=== PATIENT | female | born 1985 | race Caucasian/White ===

== ENCOUNTER 2019-02-12 17:24 | Emergency (ER) | payer OTHER ==
[~2019-02-12] VITALS: Ht 160 cm; Wt 54.4 kg
[~2019-02-12 17:24] MED LIST: AMOXICILLIN 50500 MG PO; IBUPROFEN 600600 M1 PO; NAPROSYN500 MG PO; NOHOMEMEDICATIONS; NORCO 5-325 TA1 EACH PO; PENICILLIN VK500 MG PO
[2019-02-12] MEDS ORDERED: ONDANSETRON HCL4 M2 PO (19:56)
[2019-02-12 20:07] VITALS: BP 123/82
== END 2019-02-12 20:07 | disposition home or self-care (01) ==
LOC: ER 17:24
DX: G43.909 Migraine, unspecified, not intractable, without status migrainosus (principal); F17.210 Nicotine dependence, cigarettes, uncomplicated